=== PATIENT | female | born 1955 | race Caucasian/White ===

== ENCOUNTER → 2024-07-28 | Outpatient (CLI) | payer OTHER, SELFPAY ==
--- NOTE | 2024-07-28 15:59 | MRI_ITS ---
EXAM: Noncontrast MRI of the lumbar spine. CLINICAL HISTORY: Intervertebral disc displacement. Low back pain, which radiates into both legs/knees. Remote history of prior lumbar spine surgery. COMPARISON: None available. TECHNIQUE: Multi planar, multisequence MRI images of the lumbar spine were obtained without IV contrast. FINDINGS: The study assumes a presence of 5 lumbar type, [id number] vertebral bodies. The lumbar vertebral bodies are normal in height and marrow signal. No acute fracture or abnormal marrow replacement process of the lumbar spine. Grade 1 anterolisthesis of L5 relative to L4 on S1, which appears to be due to bilateral L5 pars defects. The conus terminates at L1-2. The included lower spinal cord is unremarkable. Mild disc bulges in the lower thoracic spine, without large focal disc herniation or significant central spinal canal narrowing. The included portions of the sacrum and SI joints are intact. 2.7 cm mild ectasia infrarenal abdominal aorta. The included retroperitoneal and paraspinal soft tissues otherwise unremarkable. L1-2: Minimal disc bulge without focal disc herniation or significant central spinal canal narrowing. [id number] bilateral neural foraminal narrowing and mild degenerative facet changes. L2-3: A diffuse disc bulge along with ligamentum flavum and facet hypertrophy causes at least moderate central spinal canal narrowing (image 20 axial T2 sequence). No focal disc herniation. Mild bilateral neural foraminal narrowing, greatest on the right. Moderate degenerative facet changes. L3-4: Lobulated diffuse disc bulge indents the ventral thecal sac and causes mild central spinal canal narrowing. No focal disc herniation. Mild bilateral neural foraminal narrowing and moderate degenerative facet changes. L4-5: Findings suggestive of prior left laminectomy. No focal disc herniation, significant central spinal canal, or neural foraminal narrowing at this level. Mild bilateral neural foraminal narrowing and mild degenerative facet changes. L5-S1: Suggestion of partial posterior decompression at this level. No focal disc herniation or significant central spinal canal narrowing at this level. Mild bilateral neural foraminal narrowing, greatest on the right. Moderate degenerative facet changes. MRI/Spine Lumbar (Routine) IMPRESSION: No acute bony abnormality of the lumbar spine. Grade 1 anterolisthesis of L5 r elative to L4 and S1, which appears to be due to bilateral L5 pars defects. At least moderate central spinal canal narrowing at L2-3 due to diffuse disc bu lge and ligamentum flavum/facet hypertrophy. Suggestion of posterior decompression or laminectomies at L4-5 and L5-S1. Multilevel neural foraminal narrowing and degenerative facet changes as describ ed level by level above. Reading Location: [id number]
== END | disposition home or self-care (01) ==
LOC: MRI 15:37
PROVIDERS: Referring Provider Clinical Nurse Specialist Adult Health; Visit Provider Clinical Nurse Specialist Adult Health
DX: M51.26 Other intervertebral disc displacement, lumbar region (principal)
CPT/HCPCS: 72148